=== PATIENT | male | born 1985 | race Caucasian/White ===

== ENCOUNTER 2021-03-11 20:07 | Emergency (ER) | payer OTHER, SELFPAY ==
--- NOTE | ~2021-03-11 | XR_ITS ---
XR forearm RT 2V 03/11/2021 20:32 INDICATION: Right arm pain PROCEDURE: 2 views right forearm COMPARISON: No prior studies FINDINGS: Fracture, dislocation or subluxation is not identified. The soft tissues appear within norm al limits. No foreign bodies are identified. IMPRESSION: 1: NO ACUTE BONE OR JOINT ABNORMALITY IDENTIFIED. Reviewed, dictated and finalized at location A. SYSTEMS ANALYST CONSULTANT
[2021-03-11 20:17] VITALS: BP 139/85; PULSE 77; RESP 18; TEMP 36.4; O2SAT 99
== END 2021-03-12 03:44 | disposition left against medical advice (07) ==
PROVIDERS: Emergency Provider Emergency Medicine; PCP Nurse Practitioner Family
DX: S59.911A Unspecified injury of right forearm, initial encounter (principal)
CPT/HCPCS: 73090; 99199

== ENCOUNTER 2021-03-16 06:42 | Outpatient (CLI) | payer OTHER, SELFPAY ==
--- NOTE | ~2021-03-16 | MR_ITS ---
EXAMINATION: MR elbow RT wo con DATE: 03/16/2021 07:43 INDICATION: Rupture of the distal right biceps tendon TECHNIQUE: Magnetic resonance imaging (MRI) of the right elbow was performed without intravenous cont rast. Sequences included coronal, axial, and sagittal PD-weighted FS FSE and coronal, axial, and sagi ttal PD-weighted FSE. COMPARISON: None FINDINGS: Osseous/other: Normal alignment. Normal marrow signal with no marrow edema, fracture, osteochondral lesion or abnor mal marrow replacing process. Tendons: There is mild tendinopathy and mild partial thickness tear at the radial insertion of the distal helio ps brachii tendon. The tear appears to involve approximately one half to two thirds of the cross-sect ional area of the tendon without retraction of the tear margin. Triceps and brachialis tendons are no rmal. Common flexor tendon wad is normal. Mild tendinopathy and small partial thickness tear at the lateral epicondylar origin of the common extensor tendon wad. The tear involves a relatively small po rtion of the footplate and there is no retraction. There is no surrounding edema suggesting this is m ore likely chronic. Ligaments: The medial and lateral collateral ligament complexes are normal. Cubital tunnel: Cubital tunnel is unremarkable with normal signal and caliber of the ulnar nerve. Fluid: Physiologic amount of fluid the elbow joint. Focal soft tissue edema and very small fluid collection surrounding the tear at the radial insertion of the biceps brachia tendon. IMPRESSION: 1. Mild tendinopathy and partial-thickness tear without retraction Involving 1/2-2/3 of the cross-sectional area of the biceps brachii tendon at its radial tuberosity i nsertion. 2. Mild tendinopathy and likely chronic very small tear at the lateral epicondylar origin of the comm on extensor tendon wad. Reviewed, dictated and finalized at location A. APEUTIC RECREATION DIRECTOR IMPRESSION: 1. Mild tendinopathy and partial-thickness tear without retraction Involving 1/2-2/3 of the cross-sectional area of the biceps brachii tendon at i ts radial tuberosity insertion. 2. Mild tendinopathy and likely chronic very small tear at the lateral epicondy lar origin of the common extensor tendon wad.
== END 2021-03-16 06:43 | disposition home or self-care (01) ==
LOC: CHSIMG 06:44
PROVIDERS: PCP Nurse Practitioner Family; Visit Provider Nurse Practitioner Family
DX: S46.211A Strain of muscle, fascia and tendon of other parts of biceps, right arm, initial encounter (principal)
CPT/HCPCS: 73221